=== PATIENT | female | born 1970 | race Caucasian/White ===

== ENCOUNTER 2020-11-10 10:40 | Day surgery (SDC) | payer OTHER ==
[~2020-11-10] VITALS: Ht 157.5 cm; Wt 100.7 kg
[2020-11-10] MEDS ORDERED: fentaNYL citrate 0.05 MG/ML VIAL ONE (13:24)
[2020-11-10] MEDS ORDERED: LIDOCAINE 2% 100 MG/5 ML UJET TP ONE ×2 (13:24→13:50)
[2020-11-10] MEDS ORDERED: fentaNYL citrate 0.05 MG/ML VIAL IVP ONE (13:50)
== END 2020-11-10 14:29 | disposition home or self-care (01) ==
LOC: MDS 10:40 → MMU 10:44 → MDS 14:29
PROVIDERS: ATTEND Internal Medicine Gastroenterology
DX: Z12.11 Encounter for screening for malignant neoplasm of colon (principal); D12.3 Benign neoplasm of transverse colon; E66.01 Morbid (severe) obesity due to excess calories; Z68.41 Body mass index [BMI] 40.0-44.9, adult; Z79.899 Other long term (current) drug therapy
CPT/HCPCS: 45385; J3010